=== PATIENT | female | born 1950 | race Caucasian/White ===

== ENCOUNTER 2021-03-13 10:22 | Emergency (ER) | payer OTHER, BC ==
[2021-03-13 10:41] VITALS: BP 161/79; PULSE 78; TEMP 98.4; BMI 23.8
[2021-03-13] MEDS ORDERED: CEPHALEXIN MONOHYDRATE 500 MG CAPSULE (UD) PO ONE (12:14)
[2021-03-13] MEDS ORDERED: CEPHALEXIN MONOHYDRATE 500 MG CAPSULE (UD) ONE (12:24)
== END 2021-03-13 12:28 | disposition home or self-care (01) ==
LOC: FER 10:22
DX: R22.32 Localized swelling, mass and lump, left upper limb (principal); L53.9 Erythematous condition, unspecified; L03.114 Cellulitis of left upper limb
CPT/HCPCS: 93971; 99284-25

== ENCOUNTER 2022-01-28 14:59 | Inpatient (IN) | payer OTHER, BC ==
[2022-01-28 16:14] LABS: HEMOGLOBIN 13.2 G/dL (10.7-15.3); MCH 34.8 pg (25.7-33.7); MCHC 34.7 g/dl (32.0-36.0); MEAN CELL VOLUME 100.4 fl (80-96); MEAN PLT VOLUME 8.9 fl (7.5-11.1); PLATELET COUNT 157.5 10^3/uL (134-434); RBC 3.78 10^6/uL (3.60-5.2); RDW 13.1 % (11.6-15.6); WHITE BLOOD COUNT 12.5 10^3/uL (4.0-10.8)
[2022-01-28 16:23] LABS: ALBUMIN 3.4 g/dl (3.4-5.0); CREATININE 1.1 mg/dl (0.55-1.3); TOT PROT 6.7 g/dl (6.4-8.2)
[2022-01-28] MEDS ORDERED: cefTRIAXone SODIUM 1 GM VIAL ONE (16:37)
[2022-01-28 16:54] LABS: PLATELET ESTIMATE ADEQUATE
[2022-01-28] MEDS ORDERED: ACETAMINOPHEN 325 MG TABLET (FP) PO PRN (17:21)
[2022-01-28] MEDS ORDERED: SODIUM CHLORIDE 1,000 ML IV SCH (17:30)
[2022-01-28 18:46] VITALS: BMI 25.9
[2022-01-28] MEDS: metoPROLOL SUCCINATE 25 MG TAB.SR.24H (FP) PO SCH (22:05)
[2022-01-28] MEDS: TIMOLOL 0.5% OPHTHALMIC SOL 5 ML BOTTLE OU SCH (22:54)
[2022-01-28] MEDS: DORZOLAMIDE 2% HCL OPHTHALMIC SOLUTION 10 ML BOTTLE OU SCH (22:55)
[2022-01-28] MEDS ORDERED: ALBUTEROL SO4 HFA INHALER IH PRN (23:57)
[2022-01-29] MEDS: TIMOLOL 0.5% OPHTHALMIC SOL 5 ML BOTTLE OU SCH ×3 (06:50→21:38)
[2022-01-29 08:36] LABS: ALBUMIN 2.7 g/dl (3.4-5.0); BILIRUBIN,TOTAL 1.4 mg/dl (0.2-1); CALCIUM 8.3 mg/dl (8.5-10); CREATININE 0.9 mg/dl (0.55-1.3); PHOSPHOROUS 2.7 mg/dl (2.5-4.9); TOT PROT 5.6 g/dl (6.4-8.2)
[2022-01-29 09:04] LABS: BASO % 0.5 % (0-2.0); EOS % 0.8 % (0-4.5); HEMATOCRIT 31.7 % (32.4-45.2); HEMOGLOBIN 11.4 GM/dL (10.7-15.3); LYMPH % 21.1 % (8-40); MCH 36.7 pg (25.7-33.7); MEAN CELL VOLUME 101.8 fl (80-96); MEAN PLT VOLUME 9.3 fl (7.5-11.1); NEUT % 64.6 % (42.8-82.8); PLATELET COUNT 127 10^3/uL (134-434); RBC 3.11 M/mm3 (3.60-5.2); RDW 13.3 % (11.6-15.6); WHITE BLOOD COUNT 6.3 K/mm3 (4.0-10.0)
[2022-01-29] MEDS: DORZOLAMIDE 2% HCL OPHTHALMIC SOLUTION 10 ML BOTTLE OU SCH ×2 (09:42→21:39)
[2022-01-29] MEDS: ENOXAPARIN NA (PORCINE) 40 MG/0.4 ML DISP.SYRIN SQ SCH (09:42)
[2022-01-29] MEDS: CEFTRIAXONE 1 GM in DEXTROSE 5%-WATER - 50 ML IVPB SCH (09:42)
[2022-01-29] MEDS: ASPIRIN 81 MG CHEWABLE TABLETS PO SCH (09:43)
[2022-01-29] MEDS: metoPROLOL SUCCINATE 25 MG TAB.SR.24H (FP) PO SCH ×2 (09:43→21:36)
[2022-01-29] MEDS: FAMOTIDINE 20 MG TABLET PO SCH (09:43)
[2022-01-29] MEDS: LOSARTAN POTASSIUM 50 MG TABLET PO SCH (09:43)
[2022-01-29] MEDS: LACTOBACILLUS ACIDOPHILUS 1 TABLET PO SCH (09:43)
[2022-01-30 08:28] LABS: HEMATOCRIT 31.2 % (32.4-45.2); HEMOGLOBIN 10.9 G/dL (10.7-15.3); MCH 35.5 pg (25.7-33.7); MCHC 34.8 g/dl (32.0-36.0); MEAN CELL VOLUME 101.8 fl (80-96); MEAN PLT VOLUME 9.4 fl (7.5-11.1); PLATELET COUNT 134.3 10^3/uL (134-434); RBC 3.06 10^6/uL (3.60-5.2); RDW 12.7 % (11.6-15.6); WHITE BLOOD COUNT 6.2 10^3/uL (4.0-10.8)
[2022-01-30 08:35] LABS: CALCIUM 8.3 mg/dl (8.5-10); CREATININE 0.7 mg/dl (0.55-1.3); MAGNESIUM 1.2 mg/dL (1.8-2.4); PHOSPHOROUS 2.4 mg/dl (2.5-4.9)
[2022-01-30] MEDS ORDERED: POTASSIUM PHOSPHATE 15 MM in SODIUM CHLORIDE 250 ML IVPB ONE (08:44)
[2022-01-30] MEDS ORDERED: MAGNESIUM SULF 50% (8.12 MEQ/2 ML-1 GM VIAL) IVPB ONE (08:44)
[2022-01-30] MEDS: FAMOTIDINE 20 MG TABLET PO SCH (09:41)
[2022-01-30] MEDS: metoPROLOL SUCCINATE 25 MG TAB.SR.24H (FP) PO SCH ×2 (09:42→21:32)
[2022-01-30] MEDS: ASPIRIN 81 MG CHEWABLE TABLETS PO SCH (09:42)
[2022-01-30] MEDS: LOSARTAN POTASSIUM 50 MG TABLET PO SCH (09:42)
[2022-01-30] MEDS: TIMOLOL 0.5% OPHTHALMIC SOL 5 ML BOTTLE OU SCH ×2 (09:43→21:29)
[2022-01-30] MEDS: LACTOBACILLUS ACIDOPHILUS 1 TABLET PO SCH (09:46)
[2022-01-30] MEDS: DORZOLAMIDE 2% HCL OPHTHALMIC SOLUTION 10 ML BOTTLE OU SCH ×2 (09:47→21:33)
[2022-01-30] MEDS: ENOXAPARIN NA (PORCINE) 40 MG/0.4 ML DISP.SYRIN SQ SCH (09:48)
[2022-01-30] MEDS: CEFTRIAXONE 1 GM in DEXTROSE 5%-WATER - 50 ML IVPB SCH (10:38)
[2022-01-31 09:13] LABS: HEMATOCRIT 33.8 % (32.4-45.2); HEMOGLOBIN 11.2 G/dL (10.7-15.3); MCH 33.6 pg (25.7-33.7); MEAN CELL VOLUME 101.9 fl (80-96); MEAN PLT VOLUME 9.3 fl (7.5-11.1); PLATELET COUNT 149.1 10^3/uL (134-434); RBC 3.32 10^6/uL (3.60-5.2); RDW 13.1 % (11.6-15.6); WHITE BLOOD COUNT 6.8 10^3/uL (4.0-10.8)
[2022-01-31] MEDS: CEFTRIAXONE 1 GM in DEXTROSE 5%-WATER - 50 ML IVPB SCH (09:31)
[2022-01-31] MEDS: ENOXAPARIN NA (PORCINE) 40 MG/0.4 ML DISP.SYRIN SQ SCH (09:32)
[2022-01-31] MEDS: FAMOTIDINE 20 MG TABLET PO SCH (09:32)
[2022-01-31] MEDS: metoPROLOL SUCCINATE 25 MG TAB.SR.24H (FP) PO SCH ×2 (09:32→21:10)
[2022-01-31] MEDS: LOSARTAN POTASSIUM 50 MG TABLET PO SCH (09:32)
[2022-01-31] MEDS: LACTOBACILLUS ACIDOPHILUS 1 TABLET PO SCH (09:32)
[2022-01-31] MEDS: ASPIRIN 81 MG CHEWABLE TABLETS PO SCH (09:32)
[2022-01-31] MEDS: DORZOLAMIDE 2% HCL OPHTHALMIC SOLUTION 10 ML BOTTLE OU SCH ×2 (09:33→21:10)
[2022-01-31 09:40] LABS: CALCIUM 8.8 mg/dl (8.5-10)
[2022-01-31 09:51] LABS: CREATININE 0.8 mg/dl (0.55-1.3); MAGNESIUM 1.3 mg/dL (1.8-2.4); PHOSPHOROUS 2.7 mg/dl (2.5-4.9)
[2022-01-31] MEDS ORDERED: MAGNESIUM SULF 50% (8.12 MEQ/2 ML-1 GM VIAL) IVPB ONE (11:35)
[2022-01-31] MEDS: TIMOLOL 0.5% OPHTHALMIC SOL 5 ML BOTTLE OU SCH ×2 (13:33→21:10)
[2022-01-31 22:41] VITALS: RESP 17
[2022-02-01 01:59] VITALS: PULSE 75
[2022-02-01 06:40] VITALS: BP 143/67; TEMP 98.6
[2022-02-01 08:19] LABS: HEMATOCRIT 37.9 % (32.4-45.2); HEMOGLOBIN 12.3 G/dL (10.7-15.3); MCH 32.8 pg (25.7-33.7); MCHC 32.5 g/dl (32.0-36.0); MEAN CELL VOLUME 100.8 fl (80-96); MEAN PLT VOLUME 9.1 fl (7.5-11.1); PLATELET COUNT 175.6 10^3/uL (134-434); RBC 3.76 10^6/uL (3.60-5.2); RDW 13.4 % (11.6-15.6); WHITE BLOOD COUNT 8.2 10^3/uL (4.0-10.8)
[2022-02-01 08:26] LABS: CALCIUM 9.3 mg/dl (8.5-10); CREATININE 0.9 mg/dl (0.55-1.3); MAGNESIUM 1.2 mg/dL (1.8-2.4); PHOSPHOROUS 3.2 mg/dl (2.5-4.9)
[2022-02-01] MEDS: LOSARTAN POTASSIUM 50 MG TABLET PO SCH (09:25)
[2022-02-01] MEDS: FAMOTIDINE 20 MG TABLET PO SCH (09:26)
[2022-02-01] MEDS: ASPIRIN 81 MG CHEWABLE TABLETS PO SCH (09:26)
[2022-02-01] MEDS: metoPROLOL SUCCINATE 25 MG TAB.SR.24H (FP) PO SCH (09:26)
[2022-02-01] MEDS: ENOXAPARIN NA (PORCINE) 40 MG/0.4 ML DISP.SYRIN SQ SCH (09:27)
[2022-02-01] MEDS: LACTOBACILLUS ACIDOPHILUS 1 TABLET PO SCH (09:29)
[2022-02-01] MEDS: TIMOLOL 0.5% OPHTHALMIC SOL 5 ML BOTTLE OU SCH (10:22)
[2022-02-01] MEDS: DORZOLAMIDE 2% HCL OPHTHALMIC SOLUTION 10 ML BOTTLE OU SCH (10:22)
== END 2022-02-01 10:37 | disposition home or self-care (01) | DRG 690 ==
LOC: FER 14:59 → FM/S 17:22
PROVIDERS: ADMIT Internal Medicine; ATTEND Internal Medicine
DX: N39.0 Urinary tract infection, site not specified (principal); N12 Tubulo-interstitial nephritis, not specified as acute or chronic; I10 Essential (primary) hypertension; E78.5 Hyperlipidemia, unspecified; E11.9 Type 2 diabetes mellitus without complications; K21.9 Gastro-esophageal reflux disease without esophagitis; E83.42 Hypomagnesemia; E83.39 Other disorders of phosphorus metabolism
CPT/HCPCS: 0241U-QW; 36415; 76775-TC; 80048; 80053; 81003; 81015; 83735; 84100; 85025; 85027; 87086; 87186; 99285-25

== ENCOUNTER 2022-09-01 07:27 | Day surgery (SDC) | payer OTHER, BC ==
[2022-08-27 14:17] VITALS: BMI 21.4
[2022-09-01] MEDS: PHENYLEPHRINE 2.5% OPTHALMIC DROP 2ML BOTTLE ONE ×3 (07:45→07:55)
[2022-09-01] MEDS: CIPROFLOXACIN 0.3% EYE DROPS 5 ML BOTTLE ONE ×3 (07:45→07:55)
[2022-09-01] MEDS: TROPICAMIDE 1% OPHTH SOLN 15 ML BOTTLE ONE ×3 (07:45→07:55)
[2022-09-01] MEDS: CYCLOPENTOLATE 2% OPHTH SOLN 2 ML BOTTLE ONE ×3 (07:45→07:55)
[2022-09-01] MEDS ORDERED: BSS (NA/CA/MG/K) BALANCED SALT SOLUTION OPHTH SOLN 15 ML BOTTLE ONE (08:22)
[2022-09-01] MEDS ORDERED: CARBACHOL 0.01% INTRA-OCULAR 1.5 ML VIAL ONE (08:22)
[2022-09-01] MEDS ORDERED: TETRACAINE 0.5% OPHTH SOLN 2 ML BOTTLE ONE (08:22)
[2022-09-01] MEDS ORDERED: NEO/POLYMYX B SULF/DEXAMETH OPHTHALMIC 5ML BOTTLE ONE (08:22)
[2022-09-01] MEDS ORDERED: ONDANSETRON 4 MG/2 ML VIAL ONE (08:29)
[2022-09-01] MEDS ORDERED: MIDAZOLAM HCL 2 MG/2 ML SINGLE DOSE VIAL ONE (08:29)
[2022-09-01 09:18] VITALS: PULSE 60; RESP 16; TEMP 97.9
[2022-09-01 09:22] VITALS: BP 117/46
== END 2022-09-01 09:40 | disposition home or self-care (01) ==
LOC: FASU 07:27
PROVIDERS: ATTEND Ophthalmology
PROC: 08RJ3JZ Replacement of Right Lens with Synthetic Substitute, Percutaneous Approach (ICD-10-PCS; principal; 2022-09-01 08:50)
DX: H26.8 Other specified cataract (principal)
CPT/HCPCS: 66984; V2632; 82962